=== PATIENT | female | born 1950 | race Caucasian/White ===

== ENCOUNTER → 2018-04-08 | Outpatient (CLI) | payer MEDICARE, OTHER ==
[~2018-04-08] MED LIST: CIPROFLOXACIN500 M1 PO; LEVOTHYROXIN0.025 MG; MULTIVITAM9 MG/15 M1; NORCO 5-325 TA1 EACH PO; PREDNISONE 10 M10 MG PO; PYRIDIUM200 MG PO; ZOLOFT100 MG
== END ==
LOC: M.RAD 03-17 14:19
DX: Z12.31 Encounter for screening mammogram for malignant neoplasm of breast (principal)

== ENCOUNTER → 2019-11-04 | Outpatient (CLI) | payer MEDICARE, OTHER | LOC: M.RAD 10-29 15:59 | PROVIDERS: ATTEND Nurse Practitioner Family | DX: Z12.31 Encounter for screening mammogram for malignant neoplasm of breast (principal); M81.0 Age-related osteoporosis without current pathological fracture; Z78.0 Asymptomatic menopausal state ==

== ENCOUNTER 2019-12-02 14:13 | Inpatient (IN) | payer MEDICARE, OTHER ==
[~2019-12-02] VITALS: Ht 165.1 cm; Wt 67.9 kg
--- NOTE | ~2019-12-02 | PROC ---
[address] [address] PROCEDURE REPORT Name: JASON WILLSON Room: [address] IN M.R.#: [id number] Admission: 12/02/19 Attend Phys: Rishi Mendenhall MD Discharge: 12/06/19 Date of : 52 Report #: [id number] THIS REPORT FOR: //name// cc: Carlee Velazquez Sarah Anne FNP ~ THIS REPORT FOR: //name// For GI report, please see the Provation report in Perceptive 7 content. By: 1442Medical Records Staff JEREL /SHARYN
--- NOTE | ~2019-12-02 | PROC ---
[address] [address] PROCEDURE REPORT Name: JASON WILLSON Room: [address] IN M.R.#: [id number] Admission: 12/02/19 Attend Phys: Rishi Mendenhall MD Discharge: 12/06/19 Date of : 52 Report #: [id number] THIS REPORT FOR: //name// cc: Carlee Velazquez Sarah Anne FNP ~ THIS REPORT FOR: //name// For GI report, please see the Provation report in Perceptive 7 content. By: [facility]1Medical Records Staff JEREL /SHARYN
[~2019-12-02 14:13] MED LIST changes: -LEVOTHYROXIN0.025 MG; +SYNTHROID25 MC1 PO
[2019-12-02 14:28] VITALS: BP 118/72
[2019-12-02 15:24] LABS: ABSOLUTE LYMPHOCYTES 1.2 thou/uL (0.8-5.3); ABSOLUTE MONOCYTES 0.3 thou/uL (0.0-1.2); ABSOLUTE NEUTROPHILS 2.1 thou/uL (1.6-8.1); BASOPHILS 0.9 %; EOSINOPHILS 0.6 %; HEMATOCRIT 30.6 % (37.0-47.0); HEMOGLOBIN 9.2 gm/dL (12.0-15.0); LYMPHOCYTES 32.3 %; MCH 23.8 pg (26.0-34.0); MCHC 30.1 g/dL (28.0-37.0); MCV 79.1 fL (80.0-100.0); MONOCYTES 9.1 %; MPV 6.6 fl. (7.2-11.1); NUCLEATED RBCS 0 /100WBC; PLATELET COUNT* 231 thou/uL (150-400); POLYS 57.1 %; RBC 3.87 mil/uL (4.20-5.00); RDW-CV 20.8 % (10.5-14.5); WBC 3.6 thou/uL (4.0-11.0)
[2019-12-02 15:31] LABS: CALCIUM 8.4 mg/dL (8.5-10.1); CREATININE 0.6 mg/dL (0.6-1.3); POTASSIUM 3.9 mmol/L (3.5-5.1)
[2019-12-02 15:36] LABS: ALBUMIN 3.2 g/dL (3.4-5.0); TOTAL BILIRUBIN 0.6 mg/dL (<0.1-1.0); TOTAL PROTEIN 6.4 g/dL (6.4-8.2)
[2019-12-02 16:20] LABS: URINE BILIRUBIN NEGATIVE (Negative); URINE BLOOD NEGATIVE (Negative); URINE CLARITY CLEAR; URINE COLOR YELLOW; URINE GLUCOSE-RANDOM NEGATIVE (Negative); URINE KETONES TRACE (Negative); URINE LEUKOCYTES-REFLEX NEGATIVE (Negative); URINE NITRITE-REFLEX NEGATIVE (Negative); URINE PROTEIN NEGATIVE (Negative); URINE SPECIFIC GRAVITY >= 1.030 (1.005-1.030); URINE UROBILINOGEN 0.2 E.U./dl (0.2-1.0)
[2019-12-02 23:00] VITALS: BP 110/71
[2019-12-02 23:39] VITALS: BP 103/63
[2019-12-03] MEDS ORDERED: FERROUS SULFAT325 MG PO (00:04)
[2019-12-03] MEDS ORDERED: ALENDRONATE SOD70 MG PO (00:07)
[2019-12-03 04:00] VITALS: BP 114/68
[2019-12-03 05:23] LABS: ABSOLUTE LYMPHOCYTES 1.3 thou/uL (0.8-5.3); ABSOLUTE MONOCYTES 0.4 thou/uL (0.0-1.2); ABSOLUTE NEUTROPHILS 2.2 thou/uL (1.6-8.1); BASOPHILS 0.6 %; EOSINOPHILS 0.4 %; HEMATOCRIT 25.5 % (37.0-47.0); HEMOGLOBIN 7.7 gm/dL (12.0-15.0); MCH 23.8 pg (26.0-34.0); MCHC 30.3 g/dL (28.0-37.0); MCV 78.5 fL (80.0-100.0); MPV 7.3 fl. (7.2-11.1); NUCLEATED RBCS 0 /100WBC; PLATELET COUNT* 167 thou/uL (150-400); RBC 3.25 mil/uL (4.20-5.00); RDW-CV 20.3 % (10.5-14.5); WBC 3.9 thou/uL (4.0-11.0)
[2019-12-03 05:27] LABS: CALCIUM 8.1 mg/dL (8.5-10.1); CREATININE 0.6 mg/dL (0.6-1.3); POTASSIUM 4.1 mmol/L (3.5-5.1)
[2019-12-03 08:09] VITALS: BP 116/67
--- NOTE | 2019-12-03 10:14 | EKG ---
[place] [address] ELECTROCARDIOGRAM REPORT Name: JASON WILLSON Room: [address] ADM IN .R.#: [id number] Admission: 12/02/19 Attend Phys: Rishi Mendenhall, Discharge: Date of : 52 Date of Service: 12/02/19 1502 Report #: [id number] THIS REPORT FOR: //name// [facility] ED Test Date: 2019-12-02 Test Time: 15:02:50 Pat Name: JASON WILLSON Department: Room: [facility] Gender: F Material Planner: ILIR : 1950 Requested By: Misha Rain Order Number: [id number] MD: Clayton Olguin Measurements Intervals Reynolds Rate: 91 P: -5 FL: 189 QRS: -34 QRSD: 76 T: QT: 357 QTc: 440 Interpretive Statements Sinus rhythm Left axis deviation Low voltage, precordial leads Consider anterior infarct No previous ECG available for comparison Electronically Signed On 12-03-2019 10:14:39 CDT by Clayton Olguin [email or web address] <ELECTRONICALLY SIGNED> By: Clayton Olguin MD, FACC 12/03/19 1014 1502 1502 Clayton Olguin MD, [facility] /EPI
[2019-12-03 11:30] VITALS: BP 116/67
[2019-12-03 16:00] VITALS: BP 147/65
[2019-12-03 21:00] VITALS: BP 124/66
[2019-12-04 04:48] LABS: ABSOLUTE LYMPHOCYTES 1.1 thou/uL (0.8-5.3); ABSOLUTE MONOCYTES 0.4 thou/uL (0.0-1.2); ABSOLUTE NEUTROPHILS 1.9 thou/uL (1.6-8.1); BASOPHILS 0.5 %; EOSINOPHILS 0.7 %; HEMATOCRIT 24.2 % (37.0-47.0); HEMOGLOBIN 7.2 gm/dL (12.0-15.0); LYMPHOCYTES 32.3 %; MCH 23.5 pg (26.0-34.0); MCHC 29.8 g/dL (28.0-37.0); MCV 78.8 fL (80.0-100.0); MONOCYTES 11.7 %; MPV 7.1 fl. (7.2-11.1); NUCLEATED RBCS 0 /100WBC; PLATELET COUNT* 154 thou/uL (150-400); POLYS 54.8 %; RBC 3.07 mil/uL (4.20-5.00); RDW-CV 20.7 % (10.5-14.5); WBC 3.4 thou/uL (4.0-11.0)
[2019-12-04 05:10] LABS: ALBUMIN 2.7 g/dL (3.4-5.0); CALCIUM 8.2 mg/dL (8.5-10.1); CREATININE 0.6 mg/dL (0.6-1.3); POTASSIUM 3.8 mmol/L (3.5-5.1); TOTAL BILIRUBIN 0.9 mg/dL (<0.1-1.0); TOTAL PROTEIN 5.1 g/dL (6.4-8.2)
[2019-12-04 06:24] LABS: ANISOCYTOSIS 2+; HYPOCHROMASIA 1+; PLATELET ESTIMATE ADEQUATE
[2019-12-04 07:50] VITALS: BP 99/54
[2019-12-04 12:20] VITALS: BP 119/56
[2019-12-04 15:47] VITALS: BP 115/56
[2019-12-04 19:54] VITALS: BP 100/49
[2019-12-05 04:15] LABS: ABSOLUTE LYMPHOCYTES 1.1 thou/uL (0.8-5.3); ABSOLUTE MONOCYTES 0.4 thou/uL (0.0-1.2); ABSOLUTE NEUTROPHILS 1.9 thou/uL (1.6-8.1); BASOPHILS 0.3 %; EOSINOPHILS 1.1 %; HEMATOCRIT 23.4 % (37.0-47.0); LYMPHOCYTES 31.1 %; MCH 23.5 pg (26.0-34.0); MCHC 29.9 g/dL (28.0-37.0); MCV 78.6 fL (80.0-100.0); MONOCYTES 11.6 %; MPV 6.9 fl. (7.2-11.1); NUCLEATED RBCS 0 /100WBC; PLATELET COUNT* 153 thou/uL (150-400); POLYS 55.9 %; RBC 2.98 mil/uL (4.20-5.00); RDW-CV 20.9 % (10.5-14.5); WBC 3.4 thou/uL (4.0-11.0)
[2019-12-05 04:33] LABS: CALCIUM 8.3 mg/dL (8.5-10.1); CREATININE 0.6 mg/dL (0.6-1.3); POTASSIUM 4.1 mmol/L (3.5-5.1)
[2019-12-05 07:30] VITALS: BP 133/68
[2019-12-05 13:36] VITALS: BP 114/60; BP 118/61; BP 118/74; BP 127/76
[2019-12-05 16:05] VITALS: BP 118/61
[2019-12-05 19:57] LABS: HEMATOCRIT 28.5 % (37.0-47.0); HEMOGLOBIN 8.9 gm/dL (12.0-15.0)
[2019-12-05 20:47] VITALS: BP 138/79
[2019-12-06 04:01] LABS: ABSOLUTE LYMPHOCYTES 1.6 thou/uL (0.8-5.3); ABSOLUTE MONOCYTES 0.4 thou/uL (0.0-1.2); ABSOLUTE NEUTROPHILS 1.9 thou/uL (1.6-8.1); BASOPHILS 0.4 %; HEMATOCRIT 31.3 % (37.0-47.0); HEMOGLOBIN 9.7 gm/dL (12.0-15.0); LYMPHOCYTES 41.2 %; MCH 24.4 pg (26.0-34.0); MCHC 31.1 g/dL (28.0-37.0); MCV 78.5 fL (80.0-100.0); MONOCYTES 9.6 %; MPV 6.9 fl. (7.2-11.1); NUCLEATED RBCS 0 /100WBC; PLATELET COUNT* 161 thou/uL (150-400); POLYS 47.8 %; RBC 3.98 mil/uL (4.20-5.00)
[2019-12-06 04:18] LABS: ALBUMIN 2.7 g/dL (3.4-5.0); CALCIUM 8.5 mg/dL (8.5-10.1); CREATININE 0.7 mg/dL (0.6-1.3); POTASSIUM 3.4 mmol/L (3.5-5.1); TOTAL BILIRUBIN 0.9 mg/dL (<0.1-1.0); TOTAL PROTEIN 5.7 g/dL (6.4-8.2)
[2019-12-06 07:15] VITALS: BP 134/76
[2019-12-06] MEDS ORDERED: VITAMIN B-1100 M2 PO (08:45)
[2019-12-06] MEDS ORDERED: PROTONIX40 M2 PO (08:45)
[2019-12-06] MEDS ORDERED: FOLIC ACID1 MG PO (08:46)
[2019-12-06 09:35] VITALS: BP 134/76
--- NOTE | 2019-12-06 17:06 | PATH ---
[address] [address] PATHOLOGY RPT PROCEDURE Name: JASON AMOS Room: [address] IN M.R.#: [id number] Admission: 12/02/19 Date of : 52 Discharge: 12/06/19 Report #: [id number] Path Case #: [id number] [facility] Accession Number: [id number] . 01 Material submitted: . gastrointestinal site - BIOPSY FOR DIARRHEA . 01 Clinician provided ICD-10: K92.2 . 01 Clinical history: . GASTROINTESTINAL HEMORRHAGE, UNSPECIFIED . 02 Diagnosis: Tissue submitted as "biopsy for diarrhea": - Focal fresh hemorrhage in otherwise normal small intestinal mucosa. (LINDY:felecia; 12/06/2019) MBR 12/06/2019 1341 Local . 02 Electronically signed: . Roni Painter MD, Pathologist NPI- [id number] . 01 Gross description: . Received in a scant amount of formalin labeled "Jason Amos, biopsy for diarrhea" is a obrien-brown soft tissue fragment measuring 0.5 x 0.3 x 0.1 cm. The specimen is submitted entirely in A1. ([facility] [place]; 12/05/2019) [facility] 12/05/2019 1434 Local . 02 Pathologist provided ICD-10: K92.2 . 02 CPT . 270384 Specimen Comment: A courtesy copy of this report has been sent to [phone] Specimen Comment: [phone], Specimen Comment: Report sent to ,DR MARTINEZ / DR DVAE Performed at: [address], [place] [id number] MD Chan Garcia MD Phone: [phone] Performed at: 02 [facility] [address], [place], [place] [id number] MD Roni Painter MD Phone: [phone]
== END 2019-12-06 12:50 | disposition home or self-care (01) | DRG 378 ==
LOC: M.ERS 14:13 → M.2W 15:59 → M.TBA-ER 15:59 → M.2W 23:32 → M.ORTHSURG 12-03 20:53
PROVIDERS: Emergency Medicine Emergency Medical Services; ADMIT Internal Medicine; ATTEND Internal Medicine
PROC: 0DB98ZX Excision of Duodenum, Via Natural or Artificial Opening Endoscopic, Diagnostic (ICD-10-PCS; 2019-12-03)
PROC: 0D738ZZ Dilation of Lower Esophagus, Via Natural or Artificial Opening Endoscopic (ICD-10-PCS; 2019-12-03)
PROC: 0DBE8ZX Excision of Large Intestine, Via Natural or Artificial Opening Endoscopic, Diagnostic (ICD-10-PCS; 2019-12-04)
PROC: 30233N1 Transfusion of Nonautologous Red Blood Cells into Peripheral Vein, Percutaneous Approach (ICD-10-PCS; principal; 2019-12-05)
DX: K92.1 Melena (principal); D62 Acute posthemorrhagic anemia; E44.0 Moderate protein-calorie malnutrition; F10.20 Alcohol dependence, uncomplicated; E03.9 Hypothyroidism, unspecified; K70.0 Alcoholic fatty liver; K64.8 Other hemorrhoids; R19.7 Diarrhea, unspecified; Y90.9 Presence of alcohol in blood, level not specified; D72.819 Decreased white blood cell count, unspecified; K22.2 Esophageal obstruction; K44.9 Diaphragmatic hernia without obstruction or gangrene; R32 Unspecified urinary incontinence; Z96.641 Presence of right artificial hip joint; Z20.828 Contact with and (suspected) exposure to other viral communicable diseases; Z68.24 Body mass index [BMI] 24.0-24.9, adult; Z90.49 Acquired absence of other specified parts of digestive tract; Z88.2 Allergy status to sulfonamides; Z79.899 Other long term (current) drug therapy; Z87.891 Personal history of nicotine dependence

== ENCOUNTER → 2020-01-25 | Outpatient (CLI) | payer MEDICARE, OTHER ==
[~2020-01-25] MED LIST changes: +ALENDRONATE SOD70 MG PO; +FERROUS SULFAT325 MG PO; +FOLIC ACID1 MG PO; +PROTONIX40 M2 PO; +VITAMIN B-1100 M2 PO
--- NOTE | 2020-01-25 14:45 | 2DMMODE ---
[place] [address] 2 D/M-MODE ECHOCARDIOGRAM Name: JASON WILLSON Room: [facility]#: [id number] Admission: 01/25/20 Attend Phys: Clayton Olguin MD Discharge: Date of : 52 Date of Service: 01/25/20 1445 Report #: [id number] THIS REPORT FOR: cc: Carlee Velazquez Sarah Anne FNP Liston, Michael J. MD [facility] ~ APPROVED REPORT Study performed: 01/25/2020 13:03:05 EXAM: Comprehensive 2D, Doppler, and color-flow Echocardiogram Patient Location: Out-Patient BSA: 1.75 HR: 91 bpm BP: 148/78 mmHg Other Information Study Quality: Good Indications Dyspnea 2D Dimensions IVSd: 9.42 (7-11mm) LVOT Diam: 19.97 (18-24mm) LVDd: 44.95 mm PWd: 10.59 (7-11mm) Ascending Ao: 33.97 (22-36mm) LVDs: 27.66 (25-40mm) Aortic Root: 25.73 mm Volumes Left Atrial Volume (Systole) LA ESV Index: 17.20 mL/m2 Aortic Valve AoV Peak William.: 1.28 m/s AO Peak Gr.: 6.59 mmHg LVOT Max P.93 mmHg AO Mean Gr.: 3.68 mmHg LVOT Mean P.63 mmHg LVOT Max V: 0.99 m/s AO V2 VTI: 17.43 cm LVOT Mean V: 0.57 m/s SHADIA (VTI): 2.60 cm2 LVOT V1 VTI: 14.47 cm Mitral Valve E/A Ratio: 0.65 [place] [address] 2 D/M-MODE ECHOCARDIOGRAM Name: JASON WILLSON Room: [facility]#: [id number] Admission: 01/25/20 Attend Phys: Clayton Olguin MD Discharge: Date of : 52 Date of Service: 01/25/20 1445 Report #: [id number] MV Decel. Time: 136.75 ms MV E Max William.: 0.53 m/s MV PHT: 39.66 ms MVA (PHT): 5.55 cm2 TDI E/Lateral E': 5.30 E/Medial E': 5.30 Medial E' William.: 0.10 m/s Lateral E' William.: 0.10 m/s Pulmonary Valve PV Peak William.: 0.87 m/s PV Peak Gr.: 3.03 mmHg Left Ventricle The left ventricle is normal size. There is normal LV segmental wall motion. There is normal left ventricular wall thickness. Left ventricular systolic function is normal. LVEF is 65-70%. Grade I - abnormal relaxation pattern. Right Ventricle The right ventricle is normal size. The right ventricular systolic function is normal. Atria The left atrium size is normal. The right atrium size is normal. Aortic Valve The aortic valve is normal in structure. No aortic regurgitation is present. There is no aortic valvular stenosis. Mitral Valve The mitral valve is normal in structure. There is no mitral valve regurgitation noted. No evidence of mitral valve stenosis. Tricuspid Valve The tricuspid valve is normal in structure. There is no tricuspid valve regurgitation noted. Pulmonic Valve The pulmonary valve is normal in structure. There is no pulmonic valvular regurgitation. Great Vessels The aortic root is normal in size. IVC is normal in size and collapses >50% [place] [address] 2 D/M-MODE ECHOCARDIOGRAM Name: JASON WILLSON Room: [facility]#: [id number] Admission: 01/25/20 Attend Phys: Clayton Olguin MD Discharge: Date of : 52 Date of Service: 01/25/20 1445 Report #: [id number] Pericardium There is no pericardial effusion. <Conclusion> The left ventricle is normal size. There is normal left ventricular wall thickness. Left ventricular systolic function is normal. LVEF is 65-70%. Grade I - abnormal relaxation pattern. There is normal LV segmental wall motion. IVC is normal in size and collapses >50% with inspiration. <ELECTRONICALLY SIGNED> By: Jose Juan Noriega MD, FACC 01/25/20 1445 1445 144 Jose Juan Noriega MD, FACC /INF
== END ==
LOC: M.CRD 13:00
PROVIDERS: ATTEND Internal Medicine Cardiovascular Disease
DX: R06.02 Shortness of breath (principal)

== ENCOUNTER 2020-08-15 03:30 | Emergency (ER) | payer MEDICARE, OTHER ==
[~2020-08-15] VITALS: Ht 165.1 cm; Wt 68.0 kg
[2020-08-15] MEDS ORDERED: CALCIUM500 MG PO (03:39)
[2020-08-15 04:10] LABS: ABSOLUTE BASOPHILS 0.1 thou/uL (0.0-0.2); ABSOLUTE EOSINOPHILS 0.1 thou/uL (0.0-0.7); ABSOLUTE LYMPHOCYTES 2.4 thou/uL (0.8-5.3); ABSOLUTE MONOCYTES 0.4 thou/uL (0.0-1.2); EOSINOPHILS 0.9 %; HEMATOCRIT 34.1 % (37.0-47.0); HEMOGLOBIN 11.6 gm/dL (12.0-15.0); LYMPHOCYTES 40.2 %; MCH 31.5 pg (26.0-34.0); MCHC 33.8 g/dL (28.0-37.0); MONOCYTES 7.4 %; MPV 7.7 fl. (7.2-11.1); NUCLEATED RBCS 0 /100WBC; PLATELET COUNT* 211 thou/uL (150-400); POLYS 50.5 %; RBC 3.67 mil/uL (4.20-5.00); RDW-CV 13.1 % (10.5-14.5); WBC 5.9 thou/uL (4.0-11.0)
[2020-08-15 04:12] LABS: CALCIUM 8.7 mg/dL (8.5-10.1); CREATININE 0.6 mg/dL (0.6-1.3); POTASSIUM 4.1 mmol/L (3.5-5.1)
[2020-08-15 04:17] LABS: ALBUMIN 3.4 g/dL (3.4-5.0); TOTAL BILIRUBIN 0.4 mg/dL (<0.1-1.0); TOTAL PROTEIN 6.5 g/dL (6.4-8.2)
[2020-08-15] MEDS ORDERED: CARAFATE 1 GM TA1 GM PO (05:21)
[2020-08-15 05:32] VITALS: BP 114/58
--- NOTE | 2020-08-15 11:12 | EKG ---
[place] [address] ELECTROCARDIOGRAM REPORT Name: JASON WILLSON Room: [facility]#: [id number] Admission: 08/15/20 Attend Phys: Discharge: 08/15/20 Date of : 52 Date of Service: 08/15/20 0337 Report #: [id number] THIS REPORT FOR: //name// [facility] ED Test Date: 2020-08-15 Test Time: 03:37:18 Pat Name: JASON WILLSON Department: Room: Gender: F Distributor Advertising Material: : 1950 Requested By: Yari Martinez Order Number: [id number] MD: Jeronimo Mayo Measurements Intervals Freedom Rate: 72 P: 52 [place]: 209 QRS: -2 QRSD: 96 T: 41 QT: 415 QTc: 455 Interpretive Statements Sinus rhythm Compared to ECG 12/02/2019 15:02:50 Left-axis deviation no longer present Myocardial infarct finding no longer present Electronically Signed On 08-15-2020 11:12:48 CDT by Jeronimo Mayo [email or web address] <ELECTRONICALLY SIGNED> By: Jeronimo Mayo MD, [facility] 08/15/20 1112 0337 0337 Jeronimo Mayo MD, [facility] /EPI
== END 2020-08-15 05:33 | disposition home or self-care (01) ==
LOC: M.ERS 03:30
PROVIDERS: Personal Emergency Response Attendant
DX: K22.4 Dyskinesia of esophagus (principal); R09.81 Nasal congestion; Z88.2 Allergy status to sulfonamides; E03.9 Hypothyroidism, unspecified; Z98.890 Other specified postprocedural states